=== PATIENT | male | born 1985 | race African-American/Black ===

== ENCOUNTER 2017-08-13 03:48 | Emergency (ER) | payer SELFPAY ==
--- NOTE | 2017-08-13 04:15 | PDOC ---
History of Present Illness - General Chief Complaint: Abscess Boil Stated Complaint: CYST/ABSCESS ON FACE Time Seen by Provider: 08/13/17 03:58 History Source: Patient - History of Present Illness Initial Comments: 08/13/17 04:11 32 year old male with mild swelling to the right to side of face. "I think i have an ingrown hair." denies fever, nausea, vomiting, abdominal pain. Past History - Past Medical History Home Medications: Ambulatory Orders Doxycycline Monohydrate [Monodox] 100 mg PO Q12H #14 capsule 08/13/17 Review of Systems - Review of Systems Able to Perform ROS?: Yes Is the patient limited Slovak proficient: No Constitutional: No: Symptoms Reported, See HPI, Chills, Diaphoresis, Fever, Loss of Appetite, Malaise, Night Sweats, Weakness, Weight Stable, Unintentional Wgt. Loss, Unexplained wgt Loss, Other Integumentary: Yes: Other (no surrounding erythema. + some fluctuance noted.) *Physical Exam - Physical Exam General Appearance: Yes: Appropriately Dressed Integumentary: positive: Swelling (right side of face, + tenderness), Other. negative: Erythema Neurologic: positive: Fully Oriented, Alert Progress Note - Progress Note Progress Note: A: early abscess right side of face P: doxycycline. warm compress *DC/Admit/Observation/Transfer Diagnosis at time of Disposition: Cutaneous abscess of face - Discharge Dispostion Disposition: HOME - Prescriptions Prescriptions: Doxycycline Monohydrate [Monodox] 100 mg PO Q12H #14 capsule - Referrals Referrals: Mathew Appel MD [Staff Physician] - - Patient Instructions Printed Discharge Instructions: DI for Wound Infection Additional Instructions: appply warm compress to face. take antibiotics as prescribed. follow up with your doctor for as soon as possible. follow up with plastic surgery PRN
[2017-08-13 04:27] VITALS: BP 129/83; PULSE 63; TEMP 97.9; BMI 32.5
== END 2017-08-13 05:02 | disposition home or self-care (01) ==
LOC: JER 03:48
DX: L02.01 Cutaneous abscess of face (principal)
CPT/HCPCS: 99281-25